=== PATIENT | female | born 1935 | race Caucasian/White ===

== ENCOUNTER 2017-05-30 12:05 | Inpatient (IN) | payer MEDICARE, OTHER ==
[2017-05-30] VITALS (132 sets, daily range): BP systolic 131–144; BP diastolic 69–86; PULSE 72–73; TEMP 98.4–99; O2SAT 70–96
[~2017-05-30] VITALS: Ht 165.1 cm; Wt 79.5 kg
[~2017-05-30 12:05] MED LIST: CALCIUM 1200 W/1 SGL PO; CARDIZEM CD 12120 MG PO; COUMADIN 3MG3 MG/TAB PO; COZAAR100 MG PO; LIPITOR 40MG TA40 MG PO; SINGULAIR 110 MG/TAB PO; VITAMIN C500 MG PO; VITAMIN D31000 I1 PO; ZOLOFT 25MG25 MG PO
[2017-05-30] MEDS ORDERED: AMOXICILLIN 8751 TAB PO (13:10)
[2017-05-30] MEDS ORDERED: NORCO 325 MG-7.1 TAB PO (13:11)
[2017-05-30] MEDS ORDERED: FENTANYL 12MCG TD (13:11)
[2017-05-30] MEDS ORDERED: MIRAPEX0.5 MG PO (13:12)
[2017-05-30 21:28] LABS: ARTERIAL BLD GAS O2 SATURATION 93.3 % (92-100); ARTERIAL BLOOD GAS BASE EXCESS -2.6 (-2-2); ARTERIAL BLOOD GAS PCO2 33.2 mmHg (35-45); ARTERIAL BLOOD GAS pH 7.42 (7.35-7.45)
[2017-05-31] VITALS (1432 sets, daily range): O2SAT 76–95
[2017-06-01] VITALS (1375 sets, daily range): O2SAT 24–97
[2017-06-02] VITALS (747 sets, daily range): O2SAT 70–97
== END 2017-05-31 07:27 | DRG 559 ==
PROVIDERS: Internal Medicine
DX: S22.42XD Multiple fractures of ribs, left side, subsequent encounter for fracture with routine healing (principal); J96.01 Acute respiratory failure with hypoxia; S52.022D Displaced fracture of olecranon process without intraarticular extension of left ulna, subsequent encounter for closed fracture with routine healing; W18.30XD Fall on same level, unspecified, subsequent encounter; S27.321D Contusion of lung, unilateral, subsequent encounter; I10 Essential (primary) hypertension; G20 Parkinson's disease; I48.2 Chronic atrial fibrillation
CPT/HCPCS: 99222-AI

== ENCOUNTER 2017-05-30 21:31 | Inpatient (IN) | payer MEDICARE, OTHER ==
[~2017-05-30] VITALS: Ht 167.6 cm; Wt 81.9 kg
[~2017-05-30 21:31] MED LIST changes: +AMOXICILLIN 8751 TAB PO; +FENTANYL 12MCG TD; +MIRAPEX0.5 MG PO; +NORCO 325 MG-7.1 TAB PO
[2017-05-30 23:26] LABS: HEMATOCRIT 44.4 % (37.0-47.0); HEMOGLOBIN 14.6 g/dl (12.5-16.0); MEAN CELL VOLUME 93 fl (80.0-100.0); MEAN CORPUSCULAR HEMOGLOBIN 31 pg (27.0-31.0); MEAN CORPUSCULAR HGB CONC 33 g/dl (33.0-37.0); MEAN PLATELET VOLUME 9.5 fl (7.4-10.4); PLATELET COUNT 215 K/mm3 (130-400); RED BLOOD COUNT 4.76 M/mm3 (4.10-5.30); REDCELL DISTRIBUTION WIDTH-CV 14.7 % (11.5-14.5)
[2017-05-30 23:36] LABS: ALANINE AMINOTRANSFERASE 28 U/L (9-52); ALKALINE PHOSPHATASE 83 U/L (50-136); ANION GAP 11 mmol/L (7-16); AST,SGOT 21 U/L (15-37); BILIRUBIN,TOTAL 1.3 mg/dL (0.0-1.0); BLOOD UREA NITROGEN 16 mg/dL (7-17); CALCIUM 8.7 mg/dL (8.4-10.2); CARBON DIOXIDE 24 mmol/L (22-30); CHLORIDE 100 mmol/L (98-107); CREATININE, serum 0.85 mg/dL (0.52-1.25); GLUCOSE 155 mg/dL (74-106); POTASSIUM 3.6 mmol/L (3.4-5.0); SODIUM 135 mmol/L (137-145); TOTAL PROTEIN 7.2 gm/dL (6.4-8.2)
[2017-05-30 23:48] LABS: TROPONIN-I < 0.012 ng/mL (0.000-0.034)
[2017-05-31 06:10] LABS: HEMATOCRIT 41.4 % (37.0-47.0); HEMOGLOBIN 13.8 g/dl (12.5-16.0); MEAN CELL VOLUME 91 fl (80.0-100.0); MEAN CORPUSCULAR HEMOGLOBIN 31 pg (27.0-31.0); MEAN CORPUSCULAR HGB CONC 33 g/dl (33.0-37.0); MEAN PLATELET VOLUME 9.5 fl (7.4-10.4); PLATELET COUNT 208 K/mm3 (130-400); RED BLOOD COUNT 4.53 M/mm3 (4.10-5.30); REDCELL DISTRIBUTION WIDTH-CV 14.8 % (11.5-14.5)
[2017-05-31 06:16] LABS: INR 2.9 (0.8-3.0); PROTHROMBIN TIME 34.7 SECONDS (9.7-12.8)
[2017-05-31 06:26] LABS: ANION GAP 9 mmol/L (7-16); BLOOD UREA NITROGEN 15 mg/dL (7-17); CALCIUM 8.3 mg/dL (8.4-10.2); CARBON DIOXIDE 24 mmol/L (22-30); CHLORIDE 100 mmol/L (98-107); CREATININE, serum 0.76 mg/dL (0.52-1.25); GLUCOSE 207 mg/dL (74-106); POTASSIUM 3.7 mmol/L (3.4-5.0); SODIUM 134 mmol/L (137-145)
[2017-05-31 06:38] LABS: BAND 7 % (0-10); LYMPHOCYTE 2 % (20.0-51.0); NEUTROPHILS 87 % (42.0-75.2); PLATELET ESTIMATE NORMAL (NORMAL)
[2017-05-31 06:39] LABS: TROPONIN-I 6 HR POST INITIAL < 0.012 ng/mL (0.000-0.034)
[2017-05-31 08:00] VITALS: BP 110/73; PULSE 100
[2017-05-31 12:00] VITALS: BP 143/102; PULSE 107
[2017-05-31 16:00] VITALS: BP 108/78; PULSE 98; TEMP 97
[2017-05-31 20:00] VITALS: BP 118/68; PULSE 96; TEMP 97.8
[2017-06-01] VITALS (7 sets, daily range): BP systolic 106–145; BP diastolic 40–88; PULSE 91–114; TEMP 97.1–98.2
[2017-06-01 06:04] LABS: BASO % 0.2 % (0.0-2.0); GRAN # 11.7 (1.4-6.5); GRAN % 91.8 % (42.2-75.2); HEMATOCRIT 37.2 % (37.0-47.0); HEMOGLOBIN 12.6 g/dl (12.5-16.0); LYMPH # 0.4 (1.2-3.4); LYMPH % 3.3 % (20.0-51.0); MEAN CELL VOLUME 89 fl (80.0-100.0); MEAN CORPUSCULAR HEMOGLOBIN 30 pg (27.0-31.0); MEAN CORPUSCULAR HGB CONC 34 g/dl (33.0-37.0); MEAN PLATELET VOLUME 9.6 fl (7.4-10.4); MONO # 0.5 (0.1-0.6); MONO % 4.2 % (1.7-9.3); PLATELET COUNT 221 K/mm3 (130-400); RED BLOOD COUNT 4.16 M/mm3 (4.10-5.30); REDCELL DISTRIBUTION WIDTH-CV 14.8 % (11.5-14.5)
[2017-06-01 06:09] LABS: INR 2.7 (0.8-3.0); PROTHROMBIN TIME 31.6 SECONDS (9.7-12.8)
[2017-06-01 06:15] LABS: CALCIUM 7.9 mg/dL (8.4-10.2); CREATININE, serum 0.72 mg/dL (0.52-1.25); POTASSIUM 3.6 mmol/L (3.4-5.0)
[2017-06-02 03:47] VITALS: BP 114/87; PULSE 118; TEMP 97.7
[2017-06-02 05:40] LABS: BASO % 0.2 % (0.0-2.0); GRAN # 10.2 (1.4-6.5); GRAN % 91.1 % (42.2-75.2); HEMATOCRIT 38.6 % (37.0-47.0); LYMPH # 0.3 (1.2-3.4); LYMPH % 2.8 % (20.0-51.0); MEAN CELL VOLUME 90 fl (80.0-100.0); MEAN CORPUSCULAR HEMOGLOBIN 30 pg (27.0-31.0); MEAN CORPUSCULAR HGB CONC 34 g/dl (33.0-37.0); MEAN PLATELET VOLUME 9.3 fl (7.4-10.4); MONO # 0.6 (0.1-0.6); MONO % 5.5 % (1.7-9.3); PLATELET COUNT 257 K/mm3 (130-400); RED BLOOD COUNT 4.29 M/mm3 (4.10-5.30)
[2017-06-02 05:45] LABS: INR 3.2 (0.8-3.0); PROTHROMBIN TIME 37.8 SECONDS (9.7-12.8)
[2017-06-02 05:51] LABS: CREATININE, serum 0.64 mg/dL (0.52-1.25); POTASSIUM 3.3 mmol/L (3.4-5.0)
[2017-06-02 08:00] VITALS: BP 135/87; PULSE 106; TEMP 97.3
[2017-06-02 12:00] VITALS: BP 140/76; PULSE 107; TEMP 98
[2017-06-02 18:29] VITALS: BP 140/87; PULSE 93; TEMP 97.9
[2017-06-02 22:08] VITALS: BP 126/47; PULSE 105; TEMP 98.2
[2017-06-03 02:02] VITALS: BP 137/46; PULSE 121; TEMP 97.4
[2017-06-03 04:00] VITALS: BP 137/51; PULSE 70; TEMP 98.2
[2017-06-03 06:45] LABS: BASO % 0.2 % (0.0-2.0); GRAN # 9.4 (1.4-6.5); GRAN % 86.3 % (42.2-75.2); HEMATOCRIT 37.1 % (37.0-47.0); HEMOGLOBIN 12.6 g/dl (12.5-16.0); LYMPH # 0.5 (1.2-3.4); LYMPH % 4.9 % (20.0-51.0); MEAN CELL VOLUME 90 fl (80.0-100.0); MEAN CORPUSCULAR HEMOGLOBIN 30 pg (27.0-31.0); MEAN CORPUSCULAR HGB CONC 34 g/dl (33.0-37.0); MEAN PLATELET VOLUME 9.4 fl (7.4-10.4); MONO # 0.8 (0.1-0.6); MONO % 7.7 % (1.7-9.3); PLATELET COUNT 293 K/mm3 (130-400); RED BLOOD COUNT 4.14 M/mm3 (4.10-5.30); REDCELL DISTRIBUTION WIDTH-CV 15.3 % (11.5-14.5)
[2017-06-03 07:09] LABS: CALCIUM 8.4 mg/dL (8.4-10.2); CREATININE, serum 0.82 mg/dL (0.52-1.25); POTASSIUM 3.7 mmol/L (3.4-5.0)
[2017-06-03 10:18] VITALS: BP 112/84; PULSE 98; TEMP 97.3
[2017-06-03 15:33] VITALS: BP 148/89; PULSE 66; TEMP 97.8
[2017-06-03 18:00] VITALS: BP 140/61; PULSE 55; TEMP 97.8
[2017-06-03 21:06] VITALS: BP 136/71; PULSE 77; TEMP 97.9
[2017-06-04 00:51] VITALS: BP 138/72; PULSE 110; TEMP 97.2
[2017-06-04 04:42] VITALS: BP 131/71; PULSE 120; TEMP 98
[2017-06-04 07:03] LABS: INR 2.1 (0.8-3.0); PROTHROMBIN TIME 24.7 SECONDS (9.7-12.8)
[2017-06-04 07:22] LABS: CALCIUM 8.5 mg/dL (8.4-10.2); CREATININE, serum 0.73 mg/dL (0.52-1.25); POTASSIUM 3.8 mmol/L (3.4-5.0)
[2017-06-04 09:56] VITALS: BP 111/74; PULSE 82; TEMP 97.9
[2017-06-04 14:43] VITALS: BP 146/84; PULSE 74; TEMP 98.3
[2017-06-04 19:46] VITALS: BP 155/64; PULSE 92; TEMP 97.8
[2017-06-05 00:21] VITALS: BP 142/66; PULSE 111; TEMP 98.4
[2017-06-05 04:44] VITALS: BP 147/75; PULSE 113; TEMP 97.8
[2017-06-05 06:57] LABS: CREATININE, serum 0.67 mg/dL (0.52-1.25); POTASSIUM 3.8 mmol/L (3.4-5.0)
[2017-06-05 06:59] LABS: INR 1.8 (0.8-3.0); PROTHROMBIN TIME 21.2 SECONDS (9.7-12.8)
[2017-06-05 07:16] LABS: HEMATOCRIT 37.3 % (37.0-47.0); HEMOGLOBIN 12.5 g/dl (12.5-16.0); MEAN CELL VOLUME 90 fl (80.0-100.0); MEAN CORPUSCULAR HEMOGLOBIN 30 pg (27.0-31.0); MEAN CORPUSCULAR HGB CONC 34 g/dl (33.0-37.0); MEAN PLATELET VOLUME 8.9 fl (7.4-10.4); PLATELET COUNT 290 K/mm3 (130-400); RED BLOOD COUNT 4.14 M/mm3 (4.10-5.30); REDCELL DISTRIBUTION WIDTH-CV 15.2 % (11.5-14.5)
[2017-06-05 08:42] VITALS: BP 133/70; PULSE 41; TEMP 98
[2017-06-05 11:09] LABS: BAND 1 % (0-10); EOSINOPHIL 1 % (0-4); LYMPHOCYTE 18 % (20.0-51.0); NEUTROPHILS 71 % (42.0-75.2); PLATELET ESTIMATE NORMAL (NORMAL)
[2017-06-05 11:10] LABS: HYPOCHROMIA 1+
[2017-06-05 12:26] VITALS: BP 131/65; PULSE 86; TEMP 98.5
[2017-06-05 16:18] VITALS: BP 151/85; PULSE 54; TEMP 98.5
[2017-06-05 19:34] VITALS: BP 155/82; PULSE 56; TEMP 97.6
[2017-06-06 00:05] VITALS: BP 147/81; PULSE 111; TEMP 97.9
[2017-06-06 04:10] VITALS: BP 160/83; PULSE 97; TEMP 98.9
[2017-06-06 07:15] LABS: HEMATOCRIT 38.3 % (37.0-47.0); HEMOGLOBIN 12.6 g/dl (12.5-16.0); MEAN CELL VOLUME 91 fl (80.0-100.0); MEAN CORPUSCULAR HEMOGLOBIN 30 pg (27.0-31.0); MEAN CORPUSCULAR HGB CONC 33 g/dl (33.0-37.0); MEAN PLATELET VOLUME 9.1 fl (7.4-10.4); PLATELET COUNT 280 K/mm3 (130-400); RED BLOOD COUNT 4.23 M/mm3 (4.10-5.30); REDCELL DISTRIBUTION WIDTH-CV 15.2 % (11.5-14.5)
[2017-06-06 07:28] LABS: CALCIUM 9.2 mg/dL (8.4-10.2); CREATININE, serum 0.67 mg/dL (0.52-1.25); POTASSIUM 3.7 mmol/L (3.4-5.0)
[2017-06-06 08:07] LABS: BAND 17 % (0-10); EOSINOPHIL 2 % (0-4); LYMPHOCYTE 20 % (20.0-51.0); METAMYELOCYTE 2 % (0-0); NEUTROPHILS 53 % (42.0-75.2); PLATELET ESTIMATE NORMAL (NORMAL)
[2017-06-06 08:08] LABS: TOXIC GRANULATION PRESENT
[2017-06-06 08:44] VITALS: BP 128/55; PULSE 61; TEMP 97.8
[2017-06-06 12:25] VITALS: BP 130/54; PULSE 55; TEMP 97.8
[2017-06-06 16:04] VITALS: BP 133/71; PULSE 105; TEMP 97.2
[2017-06-06 20:47] VITALS: BP 121/61; PULSE 60; TEMP 98.8
[2017-06-07 01:22] VITALS: BP 133/61; PULSE 72; TEMP 98.3
[2017-06-07 04:55] VITALS: BP 123/62; PULSE 64; TEMP 97.3
[2017-06-07 07:37] LABS: MEAN CELL VOLUME 90 fl (80.0-100.0); MEAN CORPUSCULAR HEMOGLOBIN 30 pg (27.0-31.0); MEAN CORPUSCULAR HGB CONC 33 g/dl (33.0-37.0); MEAN PLATELET VOLUME 9.2 fl (7.4-10.4); PLATELET COUNT 238 K/mm3 (130-400); REDCELL DISTRIBUTION WIDTH-CV 15.2 % (11.5-14.5)
[2017-06-07 07:42] LABS: PROTHROMBIN TIME 23.9 SECONDS (9.7-12.8)
[2017-06-07 07:43] LABS: HEMATOCRIT 35.9 % (37.0-47.0)
[2017-06-07 08:17] LABS: CALCIUM 8.7 mg/dL (8.4-10.2); CREATININE, serum 0.68 mg/dL (0.52-1.25); POTASSIUM 3.5 mmol/L (3.4-5.0)
[2017-06-07 09:04] VITALS: BP 131/64; PULSE 102; TEMP 97.9
[2017-06-07 12:18] VITALS: BP 130/56; PULSE 76; TEMP 97.7
[2017-06-07 12:40] LABS: BAND 5 % (0-10); BASOPHIL 1 % (0-2); EOSINOPHIL 1 % (0-4); LYMPHOCYTE 12 % (20.0-51.0); NEUTROPHILS 78 % (42.0-75.2)
[2017-06-07 13:37] LABS: ARTERIAL BLD GAS O2 SATURATION 88.5 % (92-100); ARTERIAL BLD GAS TCO2 CT 22.7; ARTERIAL BLOOD GAS BASE EXCESS 0.3 (-2-2); ARTERIAL BLOOD GAS HCO3 21.8 meq/L (22-26); ARTERIAL BLOOD GAS PCO2 27.6 mmHg (35-45); ARTERIAL BLOOD GAS PO2 50.5 mmHg (80-100); ARTERIAL BLOOD GAS pH 7.52 (7.35-7.45)
[2017-06-07 16:43] VITALS: BP 131/62; PULSE 71; TEMP 98.8
[2017-06-07 19:45] VITALS: BP 151/51; PULSE 73; TEMP 98.2
[2017-06-08] VITALS (7 sets, daily range): BP systolic 124–145; BP diastolic 47–79; PULSE 72–110; TEMP 97.3–98.5
[2017-06-08 06:46] LABS: HEMOGLOBIN 12.1 g/dl (12.5-16.0); MEAN CELL VOLUME 91 fl (80.0-100.0); MEAN CORPUSCULAR HEMOGLOBIN 30 pg (27.0-31.0); MEAN CORPUSCULAR HGB CONC 33 g/dl (33.0-37.0); MEAN PLATELET VOLUME 9.2 fl (7.4-10.4); PLATELET COUNT 242 K/mm3 (130-400); REDCELL DISTRIBUTION WIDTH-CV 15.1 % (11.5-14.5)
[2017-06-08 06:53] LABS: PROTHROMBIN TIME 23.5 SECONDS (9.7-12.8)
[2017-06-08 06:54] LABS: HEMATOCRIT 36.5 % (37.0-47.0)
[2017-06-08 06:57] LABS: CALCIUM 8.4 mg/dL (8.4-10.2); CREATININE, serum 0.64 mg/dL (0.52-1.25); POTASSIUM 3.5 mmol/L (3.4-5.0)
[2017-06-08 10:57] LABS: BAND 42 % (0-10); LYMPHOCYTE 10 % (20.0-51.0); NEUTROPHILS 47 % (42.0-75.2); PLATELET ESTIMATE NORMAL (NORMAL)
[2017-06-09 05:11] VITALS: BP 121/67; PULSE 120; TEMP 97.4
[2017-06-09 06:58] LABS: MEAN CELL VOLUME 92 fl (80.0-100.0); MEAN CORPUSCULAR HGB CONC 33 g/dl (33.0-37.0); MEAN PLATELET VOLUME 9.3 fl (7.4-10.4); PLATELET COUNT 244 K/mm3 (130-400); REDCELL DISTRIBUTION WIDTH-CV 15.3 % (11.5-14.5)
[2017-06-09 07:01] LABS: HEMATOCRIT 35.1 % (37.0-47.0); HEMOGLOBIN 11.6 g/dl (12.5-16.0); MEAN CORPUSCULAR HEMOGLOBIN 31 pg (27.0-31.0)
[2017-06-09 07:06] LABS: INR 1.8 (0.8-3.0); PROTHROMBIN TIME 20.8 SECONDS (9.7-12.8)
[2017-06-09 07:11] LABS: ALBUMIN 2.6 gm/dL (3.5-5.0); CALCIUM 8.1 mg/dL (8.4-10.2); CREATININE, serum 0.69 mg/dL (0.52-1.25); MAGNESIUM 2.1 mg/dL (1.6-2.3); PHOSPHOROUS 2.6 mg/dL (2.5-4.5); POTASSIUM 3.6 mmol/L (3.4-5.0)
[2017-06-09 07:28] LABS: BAND 2 % (0-10); EOSINOPHIL 4 % (0-4); LYMPHOCYTE 7 % (20.0-51.0); NEUTROPHILS 79 % (42.0-75.2); POLYCHROMASIA 2+
[2017-06-09 07:29] LABS: PLATELET ESTIMATE NORMAL (NORMAL); TOXIC GRANULATION PRESENT
[2017-06-09 08:33] VITALS: BP 125/74; PULSE 108; TEMP 98
[2017-06-09 12:23] VITALS: BP 129/47; PULSE 61; TEMP 98.6
[2017-06-09 16:11] VITALS: BP 122/53; PULSE 78; TEMP 98.1
[2017-06-09 20:00] VITALS: BP 128/49; PULSE 83; TEMP 97.7
[2017-06-10 00:47] VITALS: BP 136/78; PULSE 102; TEMP 98
[2017-06-10 03:28] VITALS: BP 130/74; PULSE 101; TEMP 97.7
[2017-06-10 06:49] LABS: HEMATOCRIT 35.9 % (37.0-47.0); HEMOGLOBIN 11.8 g/dl (12.5-16.0); MEAN CELL VOLUME 92 fl (80.0-100.0); MEAN CORPUSCULAR HEMOGLOBIN 30 pg (27.0-31.0); MEAN CORPUSCULAR HGB CONC 33 g/dl (33.0-37.0); MEAN PLATELET VOLUME 9.1 fl (7.4-10.4); PLATELET COUNT 234 K/mm3 (130-400); REDCELL DISTRIBUTION WIDTH-CV 15.1 % (11.5-14.5)
[2017-06-10 07:02] LABS: INR 1.6 (0.8-3.0); PROTHROMBIN TIME 19.1 SECONDS (9.7-12.8)
[2017-06-10 07:08] LABS: ALBUMIN 2.7 gm/dL (3.5-5.0); CREATININE, serum 1.29 mg/dL (0.52-1.25); PHOSPHOROUS 2.7 mg/dL (2.5-4.5); POTASSIUM 3.5 mmol/L (3.4-5.0)
[2017-06-10 07:14] LABS: BAND 3 % (0-10); EOSINOPHIL 1 % (0-4); LYMPHOCYTE 3 % (20.0-51.0); NEUTROPHILS 89 % (42.0-75.2); PLATELET ESTIMATE NORMAL (NORMAL)
[2017-06-10 08:02] VITALS: BP 128/78; PULSE 101; TEMP 98.2
[2017-06-10 09:18] LABS: INFLUENZA A NEGATIVE; INFLUENZA B NEGATIVE
[2017-06-10 11:46] VITALS: BP 154/97; PULSE 98; TEMP 97.4
[2017-06-10 15:52] VITALS: BP 140/95; PULSE 107; TEMP 98
[2017-06-10 19:30] VITALS: BP 140/94; PULSE 105; TEMP 98.7
[2017-06-11] VITALS (488 sets, daily range): BP systolic 140–149; BP diastolic 48–72; PULSE 74–150; TEMP 98.5–99; O2SAT 69–94
[2017-06-11 06:42] LABS: MEAN CELL VOLUME 92 fl (80.0-100.0); MEAN CORPUSCULAR HGB CONC 33 g/dl (33.0-37.0); MEAN PLATELET VOLUME 9.4 fl (7.4-10.4); PLATELET COUNT 277 K/mm3 (130-400); RED BLOOD COUNT 3.42 M/mm3 (4.10-5.30)
[2017-06-11 06:48] LABS: INR 1.5 (0.8-3.0); PROTHROMBIN TIME 17.9 SECONDS (9.7-12.8)
[2017-06-11 06:53] LABS: ALBUMIN 2.4 gm/dL (3.5-5.0); BILIRUBIN,TOTAL 0.6 mg/dL (0.0-1.0); CALCIUM 8.1 mg/dL (8.4-10.2); CREATININE, serum 1.08 mg/dL (0.52-1.25); MAGNESIUM 2.2 mg/dL (1.6-2.3); POTASSIUM 3.2 mmol/L (3.4-5.0); TOTAL PROTEIN 5.1 gm/dL (6.4-8.2)
[2017-06-11 06:58] LABS: HEMATOCRIT 31.4 % (37.0-47.0); HEMOGLOBIN 10.3 g/dl (12.5-16.0); MEAN CORPUSCULAR HEMOGLOBIN 30 pg (27.0-31.0)
[2017-06-11 08:58] LABS: BAND 28 % (0-10); EOSINOPHIL 1 % (0-4); LYMPHOCYTE 1 % (20.0-51.0); NEUTROPHILS 65 % (42.0-75.2); PLATELET ESTIMATE NORMAL (NORMAL)
[2017-06-11 09:00] LABS: TOXIC GRANULATION PRESENT
[2017-06-12] VITALS (560 sets, daily range): BP systolic 144–183; BP diastolic 83–108; PULSE 98–120; TEMP 98–100.3; O2SAT 67–99
[2017-06-12 06:04] LABS: INR 1.5 (0.8-3.0); PROTHROMBIN TIME 17.3 SECONDS (9.7-12.8)
[2017-06-12 06:08] LABS: CALCIUM 8.4 mg/dL (8.4-10.2); CREATININE, serum 1.02 mg/dL (0.52-1.25); POTASSIUM 3.6 mmol/L (3.4-5.0)
[2017-06-12 09:50] LABS: TOTAL PROTEIN 5.8 gm/dL (6.4-8.2)
[2017-06-12 10:39] LABS: GLUCOSE,PLEURAL FLUID 188 mg/dL
[2017-06-12 10:43] LABS: TOTAL PROTEIN,PLEURAL FLUID < 2.0 gm/dL
[2017-06-12 20:04] LABS: ARTERIAL BLD GAS O2 SATURATION 91.4 % (92-100); ARTERIAL BLD GAS TCO2 CT 20.7; ARTERIAL BLOOD GAS BASE EXCESS -4.5 (-2-2); ARTERIAL BLOOD GAS HCO3 19.7 meq/L (22-26); ARTERIAL BLOOD GAS PCO2 33.3 mmHg (35-45); ARTERIAL BLOOD GAS PO2 64.4 mmHg (80-100); ARTERIAL BLOOD GAS pH 7.39 (7.35-7.45)
[2017-06-13] VITALS (355 sets, daily range): BP systolic 126–147; BP diastolic 77–97; PULSE 101–139; TEMP 96.9–97.8; O2SAT 32–100
[2017-06-13 05:52] LABS: BASO # 0.1 (0.0-0.2); BASO % 0.3 % (0.0-2.0); GRAN # 15.8 (1.4-6.5); GRAN % 89.4 % (42.2-75.2); LYMPH # 0.6 (1.2-3.4); LYMPH % 3.5 % (20.0-51.0); MEAN CELL VOLUME 92 fl (80.0-100.0); MEAN CORPUSCULAR HGB CONC 32 g/dl (33.0-37.0); MEAN PLATELET VOLUME 9.5 fl (7.4-10.4); MONO % 5.8 % (1.7-9.3); PLATELET COUNT 265 K/mm3 (130-400); RED BLOOD COUNT 3.67 M/mm3 (4.10-5.30); REDCELL DISTRIBUTION WIDTH-CV 15.4 % (11.5-14.5)
[2017-06-13 05:56] LABS: HEMATOCRIT 33.9 % (37.0-47.0); MEAN CORPUSCULAR HEMOGLOBIN 30 pg (27.0-31.0)
[2017-06-13 06:07] LABS: CALCIUM 8.7 mg/dL (8.4-10.2); CREATININE, serum 0.96 mg/dL (0.52-1.25); POTASSIUM 3.9 mmol/L (3.4-5.0)
[2017-06-13 09:21] LABS: INR 1.7 (0.8-3.0); PROTHROMBIN TIME 20.4 SECONDS (9.7-12.8)
== END 2017-06-13 12:00 | DRG 189 ==
LOC: ICU 21:31 → SURG 05-31 08:14 → MEDICAL 06-04 17:15 → ICU 06-11 10:30
PROVIDERS: Family Medicine; Internal Medicine; Internal Medicine Pulmonary Disease; Nurse Practitioner; Nurse Practitioner Family; Physician Assistant
PROC: 02H633Z Insertion of Infusion Device into Right Atrium, Percutaneous Approach (ICD-10-PCS; 2017-06-10)
PROC: 0W993ZX Drainage of Right Pleural Cavity, Percutaneous Approach, Diagnostic (ICD-10-PCS; principal; 2017-06-11)
DX: J96.01 Acute respiratory failure with hypoxia (principal); J15.212 Pneumonia due to Methicillin resistant Staphylococcus aureus; R04.2 Hemoptysis; J90 Pleural effusion, not elsewhere classified; Z66 Do not resuscitate; J32.0 Chronic maxillary sinusitis; J32.2 Chronic ethmoidal sinusitis; M25.571 Pain in right ankle and joints of right foot; F32.9 Major depressive disorder, single episode, unspecified; G20 Parkinson's disease; Z86.73 Personal history of transient ischemic attack (TIA), and cerebral infarction without residual deficits; Z79.01 Long term (current) use of anticoagulants; S22.42XD Multiple fractures of ribs, left side, subsequent encounter for fracture with routine healing; S52.022D Displaced fracture of olecranon process without intraarticular extension of left ulna, subsequent encounter for closed fracture with routine healing; W18.39XD Other fall on same level, subsequent encounter; Z85.841 Personal history of malignant neoplasm of brain; S27.0XXD Traumatic pneumothorax, subsequent encounter; I48.2 Chronic atrial fibrillation; R19.4 Change in bowel habit; I11.0 Hypertensive heart disease with heart failure; I50.9 Heart failure, unspecified
CPT/HCPCS: 99223; 99223-AI; 99231-AI; 99232-AI; 99233-AI; 99239; A4314; C1751; J0456; J1644; J1940; J2270; J2405; J2543; J2930; J3370; J7050; J7512; Q9967